=== PATIENT | male | born 1945 | race Two or more races ===

== ENCOUNTER 2018-12-23 17:45 | Inpatient (IN) | payer MEDICARE, OTHER ==
[~2018-12-23] VITALS: Ht 177.8 cm; Wt 64.4 kg
--- NOTE | 2018-12-23 17:45 | NUR ---
PT MADDIE FROM SNF FOR AMS; PT THROWING HIMSELF ON THE FLOOR, UN COOPERATIVE WITH CARE; PT AAOX1-2 FOLLOWS SIMPLE COMMANDS, RESP EVEN AND UNLABORED, NO SOB, NAD NOTED, VSS, PT ON MONITOR, PENDING ER PROVIDER PALM[place]
[2018-12-23] MEDS ORDERED: HALOPERIDOL LACTATE INJ 5 MG/ML VIAL ONE (18:47)
[2018-12-23 18:56] LABS: BASOPHILS % (AUTO) 0.3 % (0.0-2.0); HEMATOCRIT 38 % (39-51); HEMOGLOBIN 12.5 g/dL (13.5-17.5); LYMPHOCYTES # (AUTO) 3.1 /CMM (0.8-4.8); LYMPHOCYTES % (AUTO) 23.3 % (20.0-44.0); MEAN CORPUSCULAR HGB CONC 33 g/dl (31.0-36.0); MEAN CORPUSCULAR VOLUME 85 fL (80-96); MONOCYTES % (AUTO) 7.2 % (2.0-12.0); NEUTROPHILS # (AUTO) 9.2 /CMM (1.8-8.9); NEUTROPHILS % (AUTO) 69.2 % (43.0-81.0); PLATELET COUNT (AUTO) 455 /CMM (150-450); RED BLOOD CELL COUNT(AUTO) 4.42 MIL/uL (4.5-6.0); WHITE BLOOD COUNT (AUTO) 13.3 K/uL (4.3-11.0)
[2018-12-23] MEDS ORDERED: HALOPERIDOL LACTATE INJ 5 MG/ML VIAL IM ONE (19:00)
[2018-12-23 19:11] LABS: ALBUMIN 3.6 g/dL (3.4-5.0); ASPARTATE AMINOTRANSFERASE 18 U/L (15-37); BILIRUBIN,DIRECT 0.2 mg/dL (0.0-0.2); BILIRUBIN,TOTAL 0.7 mg/dL (0.2-1.0); CALCIUM, SERUM 9.3 mg/dL (8.5-10.1); CARBON DIOXIDE 21 mmol/L (21-32); CHLORIDE 108 mmol/L (98-107); CREATININE 1.4 mg/dL (0.6-1.3); GLUCOSE 97 mg/dL (74-106); POTASSIUM 4.6 mmol/L (3.5-5.1); SODIUM SERUM 144 mmol/L (136-145); UREA NITROGEN, BLOOD 12 mg/dL (7-18)
[2018-12-23 19:17] LABS: ACETAMINOPHEN 0 ug/ml (10-30); SALICYLATE 0.9 mg/dL (2.8-20.0)
[2018-12-23 19:28] LABS: ALCOHOL, BLOOD < 5 mg/dL (0-0)
[2018-12-23 19:41] LABS: ALANINE AMINOTRANSFERASE 14 U/L (12-78); ALKALINE PHOSPHATASE 62 U/L (46-116)
--- NOTE | 2018-12-23 21:00 | NUR ---
UNABLE TO GET URINE AT THIS TIME.
[2018-12-23] MEDS ORDERED: LIDOCAINE 2% JEL UROJET 10 ML MM ONE (21:10)
[2018-12-23] MEDS ORDERED: IV NS 0.9% 1,000 ML BAG IV ONE (21:30)
--- NOTE | 2018-12-23 22:57 | NUR ---
URINE COLLECTED AND SENT TO [facility]
--- NOTE | 2018-12-23 23:15 | NUR ---
RECEIVED REPORT FROM KELLY WONG FOR CONTINUITY OF CARE. PT COMFORTABLE IN BED AT THIS TIME. PT NOTED WITH PERIODS OF CONFUSION HX DEMENTIA. NO ACUTE DISTRESS NOTED AT THIS TIME. PT CONNECTED TO MONITOR.
[2018-12-23 23:20] LABS: APPEARANCE,URINE CLEAR (CLEAR); BILIRUBIN,URINE NEGATIVE (NEGATIVE); BLOOD, URINE 3+ Ery/uL (NEGATIVE); COLOR,URINE YELLOW (YELLOW); KETONES,URINE NEGATIVE (NEGATIVE); LEUKOCYTE ESTERASE ,URINE NEGATIVE (NEGATIVE); NITRITE, URINE NEGATIVE (NEGATIVE); PH,URINE 8.5 (5.0-8.0); PROTEIN,URINE 1+ mg/dl (NEGATIVE); UGLUCOSE NEGATIVE (NEGATIVE); UROBILINOGEN,URINE 0.2 EU/dL (0.2)
[2018-12-23 23:50] LABS: BACTERIA,URINE Few /HPF (None Seen); RBC,URINE TOO NUMEROUS TO COUN /HPF (0-2); SQUAMOUS EPITHELIAL CELL,UR Few /HPF (None Seen)
--- NOTE | 2018-12-24 00:03 | NUR ---
CALLED RN SUP FOR MS BED.
[2018-12-24] MEDS ORDERED: DONE23TA3 GT (00:32)
[2018-12-24] MEDS ORDERED: ASPI-605 GT (00:32)
[2018-12-24] MEDS ORDERED: FAMO20TA8 GT (00:32)
[2018-12-24] MEDS ORDERED: CLON0.1T GT (00:32)
[2018-12-24] MEDS ORDERED: ATOR40TA GT (00:32)
[2018-12-24] MEDS ORDERED: BACL10TA GT (00:32)
[2018-12-24] MEDS ORDERED: ENOX40DI SUBCUT (00:32)
[2018-12-24] MEDS ORDERED: FLUT1DIS3 INH (00:32)
[2018-12-24] MEDS ORDERED: VALB80CA GT (00:32)
[2018-12-24] MEDS ORDERED: PROT946L GT (00:33)
[2018-12-24] MEDS ORDERED: ASCO500C18 GT (00:33)
[2018-12-24] MEDS ORDERED: QUET50TA GT (00:33)
[2018-12-24] MEDS ORDERED: TAMS0.4C34 GT (00:33)
[2018-12-24] MEDS ORDERED: MULT1TAB73 GT (00:33)
[2018-12-24] MEDS ORDERED: ACET1TAB12 PO (00:33)
[2018-12-24] MEDS ORDERED: IPRA0.2S49 NEB (00:33)
[2018-12-24] MEDS ORDERED: CARB-93 GT (00:33)
[2018-12-24] MEDS ORDERED: METO50TA16 GT (00:33)
[2018-12-24] MEDS ORDERED: ACET325T53 BC (00:33)
[2018-12-24] MEDS ORDERED: ZINC454P2 MC (00:33)
[2018-12-24] MEDS ORDERED: LEVE500T9 GT (00:33)
--- NOTE | 2018-12-24 00:33 | NUR ---
PT ASSIGNED TO BED 306-2
--- NOTE | 2018-12-24 00:34 | NUR ---
PT ASSIGNED TO LA BED 309-2
--- NOTE | 2018-12-24 00:40 | NUR ---
REPORT GIVEN TO KELLY YEPEZ FOR MS BED 309-2
--- NOTE | 2018-12-24 01:12 | NUR ---
PT TRANSFERRED VIA [facility].
--- NOTE | 2018-12-24 01:20 | NUR ---
RN ADMITTING NOTES Pt ARRIVED TO THE FLOOR VIA [facility]. Pt IS AWAKE, A/OX2, IS ABLE TO STATE FULL NAME AND CURRENT YEAR AND STATE THAT HE LIVES IN A [place]ODIAL. BUT WHEN ASKED IF HE KNOWS WHERE HE CURRENTLY IS, HE SAYS HE DOES NOT KNOW. AND WHEN ASKED WHY HE IS HERE, HE DOES NOT ANSWER THE QUESTION. Pt IS VERY COMBATIVE AND UNCOOPERATIVE WITH STAFF AND WITH CARE. WILL ATTEMPT TO GRAB, BITE, & HIT STAFF WITH HIS ARMS AND LEGS WHEN STAFF COMES NEAR HIM WHEN TRYING TO CLEAN HIM OR CHANGE HIS BED SHEETS OR TAKE HIS VS SIGNS. Pt ONLY ANSWERS SIMPLE QUESTIONS. Pt IS A VERY POOR HISTORIAN AND CANNOT RECALL HIS PAST MEDICAL HISTORY. IV ACCESS ON R HAND #18G,SL & L HAND #20G,SL. NO S/S OF ACUTE DISTRESS OR SOB NOTED. SAFETY MEASURES IN PLACE. BED LOW, LOCKED, HOB ELEVATED, SIDE RAILS UP, & BED ALARM ON. WILL CONTINUE TO MONITOR Pt's CONDITION AND SAFETY THROUGHOUT THE NIGHT.
[2018-12-24 01:30] VITALS: BP 124/82
--- NOTE | 2018-12-24 02:30 | NUR ---
RN NOTES SPOKE WITH DR CULP ON THE PHONE. INFORMED HIM THAT Pt's MEDS HAVE BEEN RECONCILED AND IS READY FOR REVIEW. OBTAINED ORDERS FROM MD FOR BILATERAL SOFT RESTRAINTS FOR TONIGHT AND A 1:1 SITTER ORDER FOR THE MORNING SHIFT. MD ORDERED CONTINUOUS IVF: NS @55ML/HR. & ORDERED TO CONTINUE TUBE FEEDING FROM SNF. WILL CARRY OUT MD ORDERS.
--- NOTE | 2018-12-24 02:31 | NUR ---
RN NOTES MD ORDER TO CONTINUE SEROQUEL 50MG FROM SNF. AND TO GIVE FIRST DOSE NOW.
--- NOTE | 2018-12-24 02:40 | NUR ---
RN NOTES UNABLE TO DO FULL HEAD TO TOE SKIN ASSESSMENT. Pt IS VERY COMBATIVE AND UNCOOPERATIVE. ATTEMPTING TO BITE, KICK, & HIT STAFF WHEN NEAR Pt OR TRYING TO REPOSITION. WILL ATTEMPT TO TAKE PICTURES AT A LATER TIME WHEN Pt HAS TIME TO CALM DOWN.
[2018-12-24] MEDS ORDERED: GLUCERNA 1.5 1,000 ML BOTTLE GT PRN ×2 (03:30→12:26)
[2018-12-24] MEDS ORDERED: IV NS 0.9% 1,000 ML BAG IV PRN (03:30)
[2018-12-24] MEDS: QUETIAPINE FUMARATE 25 MG TABLET PO SCH ×3 (04:02→16:32)
[2018-12-24] MEDS: IV NS 0.9% 1,000 ML IV PRN ×2 (04:03→20:30)
[2018-12-24 04:16] LABS: URINE TOTAL PROTEIN 64.4 mg/dL (0-11.9)
[2018-12-24] MEDS ORDERED: ACETAMINOPHEN W/ CODEINE#3 1 EA TABLET PO PRN (06:30)
[2018-12-24] MEDS ORDERED: ZOLPIDEM TARTRATE 5 MG TABLET PO PRN (07:00)
[2018-12-24] MEDS ORDERED: MAG HYDROX/AL HYDROX/SIMETH 30 ML UDC PO PRN (07:00)
[2018-12-24] MEDS ORDERED: ONDANSETRON HCL/PF 4 MG/2 ML VIAL IVP PRN (07:00)
[2018-12-24] MEDS ORDERED: ACETAMINOPHEN 325 MG TABLET PO PRN (07:00)
[2018-12-24] MEDS ORDERED: MAGNESIUM HYDROXIDE 30 ML UDC PO PRN (07:00)
[2018-12-24] MEDS ORDERED: HYDROCODONE/APAP 5/325MG 1 EACH TABLET PO PRN (07:00)
[2018-12-24] MEDS ORDERED: Z GUARD REMEDY 2 OZ OINT TP PRN (07:00)
--- NOTE | 2018-12-24 07:50 | NUR ---
RN CLOSING NOTES NO SIGNIFICANT CHANGES IN Pt's CONDITION. Pt REMAINS STABLE PER BASELINE. NO S/S OF ACUTE DISTRESS OR SOB NOTED DURING THE NIGHT. RESPIRATIONS EVEN AND UNLABORED. ALL NEEDS MET AND ATTENDED TO. SAFETY MEASURES IN PLACE. ENDORSED TO DAYSHIFT RN FOR Pt's TELLY.
[2018-12-24 08:00] VITALS: BP_SYST 116; BP_SYST 144; BP_DIAS 63; BP_DIAS 77
--- NOTE | 2018-12-24 08:00 | NUR ---
MS RN AM NOTES Pt IS AWAKE, A/OX2, IS ABLE TO STATE FULL NAME AND CURRENT YEAR AND STATE THAT HE LIVES IN A CUSTODIAL. BUT WHEN ASKED IF HE KNOWS WHERE HE CURRENTLY IS, HE SAYS HE DOES NOT KNOW.PT IS CONFUSED.Pt IS VERY COMBATIVE AND UNCOOPERATIVE WITH STAFF AND WITH CARE. WILL ATTEMPT TO GRAB, BITE, & HIT STAFF WITH HIS ARMS AND LEGS WHEN STAFF COMES NEAR HIM WHEN TRYING TO CLEAN HIM OR CHANGE HIS BED SHEETS OR TAKE HIS VS SIGNS. PLACED ZIGGY SOFT WRIST RESTRAINTS AND REMOVED Q 2 HRS TO CHECK FOR CIRCULATION.WITH 1:1 SITTER AT BEDSIDE DUE TO BEING FALL RISK EVEN WITH ZIGGY SOFT WRIST RESTRAINTS,PT ATTEMPTS TO PUT HIS BLE OVER THE SIDERAILS INSPITE OF REPOSITIONING HIM FOR COMFORT WITH 2 PERSON ASSIST.Pt ONLY ANSWERS SIMPLE QUESTIONS. IV ACCESS ON R HAND #18G,SL & L HAND #20G,PIV WITH NS AT 55 ML/HR INFUSING WELL. NO S/S OF ACUTE DISTRESS OR SOB NOTED. SAFETY MEASURES IN PLACE. BED LOW, LOCKED, HOB ELEVATED, SIDE RAILS UP, & BED ALARM ON. WILL CONTINUE TO MONITOR Pt's CONDITION AND SAFETY.TURNED EVERY TWO HRS.WITH 1 1 SITTER AT BEDSIDE.
[2018-12-24] MEDS: IPRATROPIUM NEB FS 0.5 MG/2.5 ML AMPUL.NEB NEB SCH ×3 (09:00→19:51)
[2018-12-24] MEDS ORDERED: ACETAMINOPHEN 325 MG TABLET PO SCH (09:00)
[2018-12-24] MEDS: CARBIDOPA/LEVODOPA 25/100 MG 1 UDTAB GT SCH ×3 (09:08→16:25)
[2018-12-24] MEDS: MULTIVITAMINS,THERAGRAN 1 UDTAB TABLET GT SCH (09:09)
[2018-12-24] MEDS: BACLOFEN (10 MG) 10 MG TABLET GT SCH ×3 (09:09→16:25)
[2018-12-24] MEDS: ASPIRIN EC 81 MG TABLET.DR PO SCH (09:10)
[2018-12-24] MEDS: METOPROLOL TARTRATE 50 MG TABLET GT SCH ×2 (09:11→21:00)
[2018-12-24] MEDS: CLONIDINE HCL 0.1 MG TABLET GT SCH ×3 (09:11→17:00)
--- NOTE | 2018-12-24 10:39 | NUR ---
CALLED DR SAUNDERS FOR PSYCH EVAL AND HE STATED FOR DR MATA TO SEE THE PT FOR TODAY AND DR SAUNDERS WILL SEE THE PT TOMORROW.INFORMED DR MATA AND FAXED INFO TO [employer].
[2018-12-24] MEDS: ASCORBIC ACID 500 MG TABLET GT SCH (11:58)
[2018-12-24] MEDS: DONEPEZIL 5 MG TABLET GT SCH (11:58)
[2018-12-24] MEDS: LEVETIRACETAM SOL (5 ML) 100 MG/ML UDC GT SCH (11:58)
[2018-12-24] MEDS: QUETIAPINE FUMARATE 25 MG TABLET GT SCH ×2 (11:58→16:26)
[2018-12-24] MEDS: FAMOTIDINE (20 MG) 20 MG TABLET GT SCH ×2 (11:59→16:26)
[2018-12-24] MEDS: ENOXAPARIN SODIUM 40 MG/0.4 ML DISP.SYRIN SQ SCH (11:59)
[2018-12-24 12:00] VITALS: BP 101/59
[2018-12-24 16:00] VITALS: BP 95/53
--- NOTE | 2018-12-24 16:00 | NUR ---
PT'S ,ERICKA VERDIN CALLED AND WANTS TO INCREASE SEROQUEL TO 400 MG BID.EXPLAINED TO ERICKA THAT WE ARE NOT IN THE POSITION TO CHANGE THE PT'S MED DOSAGE AND THAT THE PT RECEIVES 50 MG BID IN THE FACILITY.EXPLAINED THAT THE PT WAS SEEN BY PSYCH MD,DR MATA FOR [facility] AND THAT WE NEED TO FOLLOW PSYCH MD'S ORDERS.
[2018-12-24] MEDS: ATORVASTATIN 40 MG TABLET GT SCH (17:32)
--- NOTE | 2018-12-24 18:30 | NUR ---
PT ATE 50%OF DINNER-AND WAS VERBALIZING OF BEING HUNGRY.TOLERATED MECH SOFT DIET WELL WITH ASPIRATION PRECAUTIONS.A FEEDER. WILL CONTINUE TO MONITOR. TURNED EVERY TWO HRS.
--- NOTE | 2018-12-24 19:00 | NUR ---
KELLY MS NOTES RECEIVED PATIENT IN BED SLEEPING BUT EASILY AROUSABLE, VERBALLY RESPONSIVE, RESPIRATIONS EVEN AND UNLABORED WITH EQUAL RISE AND FALL OF CHEST, DENIES ANY PAIN OR DISCOMFORT AT THIS TIME, HEAD OF BED ELEVATED FOR ASPIRATION PRECAUTIONS, GTUBE IN PLACE INTACT AND PATENT, FEEDING ORDERED IN PLACE, RESIDUALS LESS THAN 5CC, ON ACUTE MEDICAL BILATERAL SOFT WRIST RESTRAINTS FOR COMBATIVE BEHAVIOR, SKIN, CIRCULATION ASSESSED WNL, BOTH HEELS OFFLOADED WITH PILLOWS AND REPOSITIONING PROVIDED, SITTER AT BEDSIDE, ORIENTED TO STAFF AND CALL LIGHT, AND KEPT WITHIN REACH, SAFETY PRECAUTIONS IN PLACE, LOW BED AND LOCKED, IV SITE TO RIGHT HAND #18 INTACT AND PATENT, IV SITE TO LEFT HAND #20 INTACT AND PATENT, NO REDNESS, NO INFILTRATION TO SITES, IVF NS RUNNING ORDERED. ALL NEEDS ATTENDED AT THIS TIME, REMAINS COMFORTABLE WILL CONTINUE TO TRY TO COLLECT URINE AND SPUTUM ORDERED. Addendum: 12/25/18 at 0044 by ROHAN OATES RN KELLY MS OPENING NOTES
[2018-12-24 20:00] VITALS: BP 101/58
--- NOTE | 2018-12-24 21:06 | NUR ---
RN MS NOTES LOPRESSOR HELD DUE TO DECREASED B/P 101/58, HEART RATE 57
[2018-12-24] MEDS: TAMSULOSIN 0.4 MG CAP.SR.24H GT SCH (21:11)
[2018-12-25] MEDS: IPRATROPIUM NEB FS 0.5 MG/2.5 ML AMPUL.NEB NEB SCH ×4 (01:37→19:30)
[2018-12-25] MEDS ORDERED: GLUCERNA 1.5 1,000 ML BOTTLE GT PRN (06:30)
--- NOTE | 2018-12-25 06:34 | NUR ---
RN MS CLOSING NOTES PATIENT IN BED SLEEPING BUT EASILY AROUSABLE, VERBALLY RESPONSIVE, RESPIRATIONS EVEN AND UNLABORED WITH EQUAL RISE AND FALL OF CHEST, DENIES ANY PAIN OR DISCOMFORT AT THIS TIME, HEAD OF BED ELEVATED FOR ASPIRATION PRECAUTIONS, GTUBE IN PLACE INTACT AND PATENT, FEEDING ORDERED IN PLACE INCREASED RATE TO 50 ML/HR WITH GOAL OF 70ML/HR, RESIDUALS LESS THAN 5CC, SITTER AT BEDSIDE, SKIN, CIRCULATION ASSESSED WNL, INTACT RESTRAINTS RELEASED, BOTH HEELS OFFLOADED WITH PILLOWS AND REPOSITIONING PROVIDED, SACRAL SITE OFFLOADED, NOTED REDNESS MEPILEX APPLIED AWAITING WOUND CARE CONSULT AND OFFLOADED CALL LIGHT KEPT WITHIN REACH, SAFETY PRECAUTIONS IN PLACE, LOW BED AND LOCKED, IV SITE TO RIGHT HAND #18 INTACT AND PATENT, IV SITE TO LEFT HAND #20 INTACT AND PATENT, NO REDNESS, NO INFILTRATION TO SITES, IVF NS RUNNING ORDERED. ALL NEEDS ATTENDED AT THIS TIME, REMAINS COMFORTABLE ATTEMPTED TO COLLECT URINE AND SPUTUM ORDERED UNABLE TO PATIENT KICKING, YELLING " LEAVE ME ALONE, EXCUSE".DESPITE EXPLANATION ATTEMPTED TO COLLECT WITH NEW CLEAN URINAL WELL, PATIENT REFUSED. WILL CONTINUE TO MONITOR AND ENDORSE TO NEXT SHIFT.
[2018-12-25 06:43] LABS: BASOPHILS % (AUTO) 0.7 % (0.0-2.0); EOSINOPHILS % (AUTO) 6.9 % (0.0-6.0); HEMATOCRIT 32 % (39-51); HEMOGLOBIN 10.6 g/dL (13.5-17.5); LYMPHOCYTES % (AUTO) 42.1 % (20.0-44.0); MEAN CORPUSCULAR HGB CONC 33 g/dl (31.0-36.0); MEAN CORPUSCULAR VOLUME 84 fL (80-96); MONOCYTES # (AUTO) 0.4 /CMM (0.1-1.30); MONOCYTES % (AUTO) 8.7 % (2.0-12.0); NEUTROPHILS % (AUTO) 41.6 % (43.0-81.0); PLATELET COUNT (AUTO) 274 /CMM (150-450); WHITE BLOOD COUNT (AUTO) 4.7 K/uL (4.3-11.0)
[2018-12-25 07:01] LABS: ALANINE AMINOTRANSFERASE 10 U/L (12-78); ALBUMIN 2.4 g/dL (3.4-5.0); ALKALINE PHOSPHATASE 44 U/L (46-116); ASPARTATE AMINOTRANSFERASE 19 U/L (15-37); BILIRUBIN,TOTAL 0.3 mg/dL (0.2-1.0); CALCIUM, SERUM 8.1 mg/dL (8.5-10.1); CARBON DIOXIDE 26 mmol/L (21-32); CHLORIDE 109 mmol/L (98-107); CREATININE 0.8 mg/dL (0.6-1.3); GLUCOSE 94 mg/dL (74-106); MAGNESIUM 1.7 mg/dL (1.8-2.4); PHOSPHORUS 3.6 mg/dL (2.5-4.9); POTASSIUM 3.6 mmol/L (3.5-5.1); SODIUM SERUM 143 mmol/L (136-145); UREA NITROGEN, BLOOD 13 mg/dL (7-18)
[2018-12-25 07:03] LABS: CHOLESTEROL 102 mg/dL (<200); CREATINE KINASE, TOTAL 378 U/L (39-308); HDL CHOLESTEROL 35 mg/dL (40-60); LDL 60 mg/dL (0-99); THYROID STIMULATING HORMONE 0.562 uIU/mL (0.358-3.74); TRIGLYCERIDES 85 mg/dL (30-150)
--- NOTE | 2018-12-25 07:31 | NUR ---
MS/RN OPENING NOTE PATIENT IN BED IN STABLE CONDITION. A/O X 1 WITH EPISODES OF CONFUSION AND BEING COMBATIVE SOMETIMES. NO SIGNS OF ACUTE DISTRESS. NO COMPLAIN OF PAIN OR DISCOMFORT. ON G TUBE FEEDING GLUCERNA 1.2 AT 50MLS/HR WITH GOAL 70MLS/HR. TOLERATING WELL. HOB ELEVATED AT ALL TIMES FOR ASPIRATION PRECAUTION. ALL NEEDS ATTENDED TO. 1:1 SITTER AT BEDSIDE. CALL LIGHT WITHIN REACH. WILL CONTINUE TO MONITOR TO ENSURE SAFETY.
[2018-12-25 08:00] VITALS: BP 137/73
--- NOTE | 2018-12-25 08:22 | NUR ---
WOUND CARE CONSULT WOUND CARE RECEIVED CONSULT FOR MULTIPLE WOUNDS. WOUND CARE WILL DEFER CONSULT AND ALL TREATMENT PLANS TO PLASTIC SURGICAL TEAM WHO HAVE BEEN NOTIFIED OF THE CONSULT INCLUDING DPM DR MORRELL. PATIENT WITH DERIC AT 12, ALL PRESSURE ULCER PREVENTION MEASURES ARE NOTED TO BE IN PLACE AT THIS TIME. WILL SEE PRN.
[2018-12-25] MEDS: FLUTICASONE/VILANTEROL 1 EACH BLST.W.DEV IH SCH (08:43)
[2018-12-25] MEDS: BACLOFEN (10 MG) 10 MG TABLET GT SCH ×3 (08:44→16:38)
[2018-12-25] MEDS: ASCORBIC ACID 500 MG TABLET GT SCH (08:44)
[2018-12-25] MEDS: QUETIAPINE FUMARATE 25 MG TABLET GT SCH ×3 (08:44→16:39)
[2018-12-25] MEDS: METOPROLOL TARTRATE 50 MG TABLET GT SCH ×2 (08:44→21:00)
[2018-12-25] MEDS: MULTIVITAMINS,THERAGRAN 1 UDTAB TABLET GT SCH (08:44)
[2018-12-25] MEDS: ASPIRIN EC 81 MG TABLET.DR PO SCH (08:44)
[2018-12-25] MEDS: DONEPEZIL 5 MG TABLET GT SCH (08:44)
[2018-12-25] MEDS: FAMOTIDINE (20 MG) 20 MG TABLET GT SCH ×2 (08:44→16:38)
[2018-12-25] MEDS: LEVETIRACETAM SOL (5 ML) 100 MG/ML UDC GT SCH (08:44)
[2018-12-25] MEDS: CARBIDOPA/LEVODOPA 25/100 MG 1 UDTAB GT SCH ×3 (08:45→16:38)
[2018-12-25] MEDS: ENOXAPARIN SODIUM 40 MG/0.4 ML DISP.SYRIN SQ SCH (08:45)
[2018-12-25] MEDS: CLONIDINE HCL 0.1 MG TABLET GT SCH ×3 (08:45→16:40)
[2018-12-25] MEDS: Magnesium 1GM/D5W 100ML PREMIX 100 ML IV SCH ×2 (10:44→11:42)
--- NOTE | 2018-12-25 12:41 | NUR ---
M/S RN PATIENT REFUSED TO COLLECT URINE AND SPUTUM CULTURE PER MD ORDER. RISK AND BENEFITS DISCUSSED PATIENT AND OFFERED X3, STILL REFUSED. WILL CONTINUE TO OFFER.
[2018-12-25] MEDS: IV NS 0.9% 1,000 ML IV PRN (15:53)
[2018-12-25 16:00] VITALS: BP 96/57
--- NOTE | 2018-12-25 16:26 | NUR ---
MS/RN PATIENT SEEN AND EVALUATED BY ANDRE Greenberg FOR GI WITH ORDERS OF DIETARY CONSULT AND CALORIE COUNT X 3 DAYS; STARTING DINNER TODAY. KITCHEN NOTIFIED.
[2018-12-25] MEDS: ATORVASTATIN 40 MG TABLET GT SCH (16:39)
--- NOTE | 2018-12-25 18:20 | NUR ---
MS/RN CLOSING NOTE PATIENT IN BED IN STABLE CONDITION. A/O X 1-2 WITH EPISODES OF CONFUSION. NO SIGNS OF ACUTE DISTRESS. NO COMPLAIN OF PAIN OR DISCOMFORT. HOB ELEVATED FOR ASPIRATION PRECAUTION. PO MEAL INTAKE NOTED WELL AND TOLERATED WELL. 1:1 SITTER AT BEDSIDE. ALL NEEDS ATTENDED TO. CALL LIGHT WITHIN REACH. WILL ENDORSE TO NEXT SHIFT FOR CONTINUITY OF CARE.
--- NOTE | 2018-12-25 19:00 | NUR ---
RN MS OPENING NOTES RECEIVED PATIENT IN BED SLEEPING BUT EASILY AROUSABLE, VERBALLY RESPONSIVE, RESPIRATIONS EVEN AND UNLABORED WITH EQUAL RISE AND FALL OF CHEST, DENIES ANY PAIN OR DISCOMFORT AT THIS TIME, HEAD OF BED ELEVATED FOR ASPIRATION PRECAUTIONS, GTUBE IN PLACE INTACT AND PATENT, RESIDUALS LESS THAN 5CC, SITTER AT BEDSIDE, BOTH HEELS OFFLOADED WITH PILLOWS AND REPOSITIONING PROVIDED, ORIENTED TO STAFF AND CALL LIGHT, AND KEPT WITHIN REACH, SAFETY PRECAUTIONS IN PLACE, LOW BED AND LOCKED, IV SITE TO RIGHT HAND #18 INTACT AND PATENT, IV SITE TO LEFT HAND #20 INTACT AND PATENT, NO REDNESS, NO INFILTRATION TO SITES, IVF NS RUNNING ORDERED. ALL NEEDS ATTENDED AT THIS TIME, REMAINS COMFORTABLE WILL CONTINUE TO TRY TO COLLECT URINE AND SPUTUM ORDERED HOWEVER PATIENT AT THIS TIME OF EXPLANATION IS REFUSIVE STATING " NO" DESPITE EXPLAINING RISKS AND BENEFITS.
--- NOTE | 2018-12-25 19:30 | NUR ---
RN MS NOTES PATIENT REFUSED RESPIRATORY TREATMENT. X 3 DESPITE EXPLAINING RISK AND BENEFITS
[2018-12-25 20:00] VITALS: BP 111/56
--- NOTE | 2018-12-25 20:00 | NUR ---
RN MS NOTES PATIENT IS REFUSING VITAL SIGNS AT THIS TIME, EXPLAINED RISK AND BENEFITS. REFUSED X 3, WILL TRY AGAIN
[2018-12-25] MEDS: TAMSULOSIN 0.4 MG CAP.SR.24H GT SCH ×2 (21:03→22:00)
--- NOTE | 2018-12-25 21:49 | NUR ---
KELLY MS OPENING NOTES RECEIVED PATIENT IN BED SLEEPING BUT EASILY AROUSABLE, VERBALLY RESPONSIVE, RESPIRATIONS EVEN AND UNLABORED WITH EQUAL RISE AND FALL OF CHEST, DENIES ANY PAIN OR DISCOMFORT AT THIS TIME, HEAD OF BED ELEVATED FOR ASPIRATION PRECAUTIONS, GTUBE IN PLACE INTACT AND PATENT, RESIDUALS LESS THAN 5CC, SITTER AT BEDSIDE, BOTH HEELS OFFLOADED WITH PILLOWS AND REPOSITIONING PROVIDED, ORIENTED TO STAFF AND CALL LIGHT, AND KEPT WITHIN REACH, SAFETY PRECAUTIONS IN PLACE, LOW BED AND LOCKED, IV SITE TO RIGHT HAND #18 INTACT AND PATENT, IV SITE TO LEFT HAND #20 INTACT AND PATENT, NO REDNESS, NO INFILTRATION TO SITES, IVF NS RUNNING ORDERED. ALL NEEDS ATTENDED AT THIS TIME, REMAINS COMFORTABLE WILL CONTINUE TO TRY TO COLLECT URINE AND SPUTUM ORDERED HOWEVER PATIENT AT THIS TIME OF EXPLANATION IS REFUSIVE STATING " NO" DESPITE EXPLAINING RISKS AND BENEFITS. Addendum: 12/26/18 at 0158 by ROHAN OATES RN clarification opening notes 189912/25/18
--- NOTE | 2018-12-25 22:00 | NUR ---
RN MS NOTES PATIENT REFUSED MEDICATIONS LOPRESSOR AND FLOMAX X3 EXPLAINED RISK AND BENEFITS, OFFERED VIA GT OR BY MOUTH WITH PUDDING REFUSED, STATED "NO I DONT WANT IT". PATIENT ALSO REFUSING VITAL SIGNS , STRIKING AT STAFF DURING EXPLANATION WAS ABLE TO CONVINCE FOR BLOOD PRESSURE ONLY ,,18 UNABLE TO TAKE TEMPERATURE OR 02 SAT, HOWEVER PATIENT RESPIRATIONS ARE EVEN AND UNLABORED WITH EQUAL RISE AND FALL OF CHEST, NO SOB PRESENT.
[2018-12-26] MEDS: IPRATROPIUM NEB FS 0.5 MG/2.5 ML AMPUL.NEB NEB SCH ×4 (00:59→19:30)
--- NOTE | 2018-12-26 06:38 | NUR ---
RN MS CLOSING NOTES PATIENT IN BED AWAKE ALERT AND ORIENTED X 1-2 WITH PERIODS OF FORGETFULNESS AND CONFUSION VERBALLY RESPONSIVE, RESPIRATIONS EVEN AND UNLABORED WITH EQUAL RISE AND FALL OF CHEST, DENIES ANY PAIN OR DISCOMFORT AT THIS TIME, HEAD OF BED ELEVATED FOR ASPIRATION PRECAUTIONS, GTUBE IN PLACE INTACT AND PATENT, RESIDUALS LESS THAN 5CC, SITTER AT BEDSIDE, BOTH HEELS OFFLOADED WITH PILLOWS AND REPOSITIONING PROVIDED, REPOSITIONED AND OFFLOADED SACRAL BUTTOCKS AREA, REMAINS INTACT, Z-GUARD APPLIED AND MEPILEX FOR SKIN MANAGEMENT AND PREVENTION,CALL LIGHT KEPT WITHIN REACH, SAFETY PRECAUTIONS IN PLACE, LOW BED AND LOCKED, IV SITE TO RIGHT HAND #18 AND RIGHT UPPER ARM #22G INTACT AND PATENT, NO REDNESS, NO INFILTRATION TO SITES, IVF NS RUNNING ORDERED. ALL NEEDS ATTENDED AT THIS TIME, REMAINS COMFORTABLE AT THIS TIME, PATIENT IS STILL COMBATIVE AND REFUSIVE TO CARE. UNABLE TO COLLECT URINE AND SPUTUM ORDERED PATIENT AT THIS TIME DESPITE OF EXPLANATION IS REFUSIVE STATING " NO" EXPLAINED RISKS AND BENEFITS. ALL NEEDS ATTENDED SAFETY PRECAUTIONS IN PLACE, WILL CONTINUE TO MONITOR AND ENDORSE TO NEXT SHIFT.
[2018-12-26 07:14] LABS: CALCIUM, SERUM 7.8 mg/dL (8.5-10.1); CARBON DIOXIDE 24 mmol/L (21-32); CHLORIDE 113 mmol/L (98-107); CREATININE 0.8 mg/dL (0.6-1.3); GLUCOSE 96 mg/dL (74-106); MAGNESIUM 1.8 mg/dL (1.8-2.4); POTASSIUM 3.4 mmol/L (3.5-5.1); SODIUM SERUM 146 mmol/L (136-145); UREA NITROGEN, BLOOD 9 mg/dL (7-18)
--- NOTE | 2018-12-26 07:36 | NUR ---
MS/RN OPENING NOTES RECEIVED PATIENT ON BED WITH HOB ELEVATED SLEEPING BUT EASILY AROUSABLE; A/O X2 WITH EPISODE OF CONFUSION. RESPIRATION EVEN AND NON LABORED WITH NO ACUTE RESPIRATORY DISTRESS. DENIES PAIN AND DISCOMFORT. IV ON RIGHT UPPER ARM WITH NO S/SX OF INFILTRATION. CONTINUE TO BE ON ASPIRATION PRECAUTION; SITTER ON BEDSIDE DUE TO COMBATIVENESS BEHAVIOR AND WANTED TO GET OUT FROM THE BED. NO BM X 2 DAYS DUE TO NON COMPLIANCE WITH ADMINISTRATION OF MOM PER GRAPPLE CREW LEADER, WILL CONTINUE TO OFFER. PLACED CALL LIGHT WITHIN REACH TO ENSURE PATIENT'S SAFETY AT ALL TIMES. WILL CONTINUE TO EVALUATE CARE.
[2018-12-26] MEDS: BACLOFEN (10 MG) 10 MG TABLET GT SCH ×4 (09:00→18:02)
[2018-12-26] MEDS: CARBIDOPA/LEVODOPA 25/100 MG 1 UDTAB GT SCH ×4 (09:00→18:02)
[2018-12-26] MEDS: DONEPEZIL 5 MG TABLET GT SCH (09:00)
[2018-12-26] MEDS: CLONIDINE HCL 0.1 MG TABLET GT SCH ×3 (09:00→17:00)
[2018-12-26] MEDS: FLUTICASONE/VILANTEROL 1 EACH BLST.W.DEV IH SCH (09:00)
[2018-12-26] MEDS: LEVETIRACETAM SOL (5 ML) 100 MG/ML UDC GT SCH (09:00)
[2018-12-26] MEDS: ENOXAPARIN SODIUM 40 MG/0.4 ML DISP.SYRIN SQ SCH (09:00)
[2018-12-26] MEDS: QUETIAPINE FUMARATE 25 MG TABLET GT SCH ×3 (09:00→13:07)
[2018-12-26] MEDS: ASCORBIC ACID 500 MG TABLET GT SCH (09:00)
[2018-12-26] MEDS: FAMOTIDINE (20 MG) 20 MG TABLET GT SCH ×2 (09:00→18:02)
[2018-12-26] MEDS: ASPIRIN EC 81 MG TABLET.DR PO SCH (09:00)
[2018-12-26] MEDS: METOPROLOL TARTRATE 50 MG TABLET GT SCH ×2 (09:00→21:46)
[2018-12-26] MEDS: MULTIVITAMINS,THERAGRAN 1 UDTAB TABLET GT SCH (09:00)
[2018-12-26] MEDS ORDERED: POTASSIUM CHLORIDE 20 MEQ POWDER PACKET GT ONE (10:00)
--- NOTE | 2018-12-26 10:04 | NUR ---
MS/RN: PATIENT REFUSED TO TAKE AM MEDICATION ORDERED. RISK AND BENEFITS DISCUSSED AND OFFERED MEDICATION X 3, STATED HE WANTED TO TALK TO THE SISTER. RN CALLED SISTER AND UPON GIVING THE PHONE TO PATIENT, HE REFUSED TO TALK TO SISTER AND CONTINUE TO REFUSED MEDICATION ORDERED. PAGED DR. NELSON FOR PSYCH EVALUATION FOR FOLLOW UP. WAITING FOR CALL BACK.
--- NOTE | 2018-12-26 11:04 | NUR ---
M/S RN PATIENT REFUSED POTASSIUM ORDERED, RISK AND BENEFITS DISCUSSED, OFFERED X 3 AND STILL REFUSED. WILL CONTINUE TO MONITOR; PLACE CALL LIGHT WITHIN REACH AND SITTER CONTINUE ON BEDSIDE FOR SAFETY.
[2018-12-26] MEDS: LORAZEPAM INJ 2 MG/ML VIAL IV PRN ×2 (12:44→20:21)
[2018-12-26 13:11] LABS: PTH, INTACT 49 pg/mL (15-65)
--- NOTE | 2018-12-26 14:05 | NUR ---
MS/RN PATIENT REFUSED AFTERNOON MEDICATION ORDERED, OFFERED X3 WITH RISK AND BENEFITS DISCUSSED AND STILL REFUSED. SITTER ON BEDSIDE WITH CALL LIGHT WITHIN REACH FOR SAFETY. WILL CONTINUE TO MONITOR.
[2018-12-26] MEDS: IV NS 0.9% 1,000 ML IV PRN (16:11)
--- NOTE | 2018-12-26 16:32 | NUR ---
MS/RN SPOKE WITH DR DARNELL ROUSE AND RELAYED PATIENT'S CXR RESULTS WITH ORDERS TO OKAY TO DISCHARGE TO [facility].
[2018-12-26] MEDS: ATORVASTATIN 40 MG TABLET GT SCH (18:02)
[2018-12-26] MEDS: QUETIAPINE FUMARATE 100 MG TABLET GT SCH (18:02)
--- NOTE | 2018-12-26 18:24 | NUR ---
M/S RN PATIENT REFUSED CLONIDINE ORDERED, REFUSED TO TAKE VITAL SIGNS. RISK AND BENEFITS DISCUSSED; OFFERED X3 AND STILL REFUSED. WILL CONTINUE TO EVALUATE. WAITING FOR PSYCH EVAL AT THIS TIME.
--- NOTE | 2018-12-26 18:42 | NUR ---
MS/RN CLOSING NOTES PATIENT A/O X 1-2 AND ABLE TO MAKE NEEDS KNOWN. PATIENT WITH PRESENCE OF AGGRESSIVE BEHAVIOR WITH COMBATIVENESS; NON COMPLIANCE WITH CARE ESPECIALLY MEDICATION AND TREATMENT ADMINISTRATION EVEN IF RISK AND BENEFITS DISCUSSED. RESPIRATION EVEN AND NON LABORED WITH NO ACUTE RESPIRATORY DISTRESS; SHORTNESS OF BREATH IN MINIMAL EXERTION; OXYGEN OFFERED VIA NASAL CANNULA AND REFUSED. EDUCATED BREATHING PATTERN WITH HEAD OF BED ELEVATED FOR LUNG EXPANSION. DENIES PAIN AND DISCOMFORT. ABDOMEN SOFT AND NON DISTENDED WITH ACTIVE BOWEL SOUNDS; PRESENCE OF G-TUBE WITH NO SIGNS AND SYMPTOMS OF INFECTION AT SITE. IV ON RIGHT UPPER ARM #22 WITH IV STOPPED CAUSE PATIENT PULLED OUT THE TUBE FROM IV PUMP; REFUSED TO PUT ANOTHER IV HYDRATION EITHER TOUCHING THE IV SITES. CONTINUE ON ASPIRATION PRECAUTION WITH MECHANICAL SOFT NECTAR THICK LIQUID DIET. SKIN WARM TO TOUCH WITH BOTH HEELS ON OFF LOAD, SACRAL REDNESS GIVEN Z-GUARD FOR SKIN PROTECTANT. ALL NURSING CARE PROVIDED. SITTER ON BEDSIDE AT ALL TIMES; PLACED CALL LIGHT WITHIN REACH TO ENSURE SAFETY. ENDORSED OT NEXT SHIFT PATIENT'S CONDITION.
--- NOTE | 2018-12-26 19:30 | NUR ---
MS RN INITIAL NOTES Patient in bed, appears angry. IVF not infusing, per report patient refused medication and treatment. Patient is also irritable and with agitation behavior, IV cath in left hand appears dislodged. On RA, denies shortness of breath. Maintained safety, sitter at the bedside. Will cont to monitor.
[2018-12-26 20:29] VITALS: BP 110/72
[2018-12-26] MEDS: TAMSULOSIN 0.4 MG CAP.SR.24H GT SCH (21:46)
[2018-12-26] MEDS: QUETIAPINE FUMARATE 25 MG TABLET GT PRN (21:51)
[2018-12-27] MEDS: IPRATROPIUM NEB FS 0.5 MG/2.5 ML AMPUL.NEB NEB SCH ×4 (01:05→18:49)
[2018-12-27] MEDS: LORAZEPAM INJ 2 MG/ML VIAL IV PRN ×2 (05:46→17:28)
--- NOTE | 2018-12-27 06:15 | NUR ---
MS RN CLOSING NOTES Patient in bed, A/O x 1 to self only, with confusion and agitation at times. Non compliant with medication and treatment, pulling off IV tubings/IV peripheral lines, combative and aggressive during care, PRN ativan given x2 this shift, Psyche following. Stool for OB test, no bowel movement this shift. Refused nebulizer treatment per RT. Stable oxygen saturation on RA, no cough. Gtube intact and clamped. Maintained safety, sitter at the bedside. Will endorse to oncoming RN.
[2018-12-27 06:54] LABS: BASOPHILS % (AUTO) 0.7 % (0.0-2.0); EOSINOPHILS % (AUTO) 4.1 % (0.0-6.0); HEMATOCRIT 34 % (39-51); HEMOGLOBIN 11.4 g/dL (13.5-17.5); LYMPHOCYTES # (AUTO) 4.2 /CMM (0.8-4.8); LYMPHOCYTES % (AUTO) 57.1 % (20.0-44.0); MEAN CORPUSCULAR HGB CONC 34 g/dl (31.0-36.0); MEAN CORPUSCULAR VOLUME 85 fL (80-96); MONOCYTES # (AUTO) 0.7 /CMM (0.1-1.30); MONOCYTES % (AUTO) 8.9 % (2.0-12.0); NEUTROPHILS # (AUTO) 2.1 /CMM (1.8-8.9); NEUTROPHILS % (AUTO) 29.2 % (43.0-81.0); PLATELET COUNT (AUTO) 267 /CMM (150-450); RED BLOOD CELL COUNT(AUTO) 4.02 MIL/uL (4.5-6.0); WHITE BLOOD COUNT (AUTO) 7.3 K/uL (4.3-11.0)
[2018-12-27 07:04] LABS: CALCIUM, SERUM 8.2 mg/dL (8.5-10.1); CARBON DIOXIDE 22 mmol/L (21-32); CHLORIDE 111 mmol/L (98-107); CREATININE 0.8 mg/dL (0.6-1.3); GLUCOSE 85 mg/dL (74-106); MAGNESIUM 1.7 mg/dL (1.8-2.4); POTASSIUM 3.2 mmol/L (3.5-5.1); SODIUM SERUM 146 mmol/L (136-145); UREA NITROGEN, BLOOD 7 mg/dL (7-18)
--- NOTE | 2018-12-27 07:20 | NUR ---
RN OPENING NOTES PT RESTING IN BED. 1:1 SITTER AT BEDSIDE. PT ALERT TO SELF AND IS CONFUSED. PER ROLLER MAN NURSE PT HAS BEEN REFUSING MEDICATIONS. NO APPARENT S/S OF PAIN, DISTRESS OR SOB AT THIS TIME. PT HAS A LEFT UPPER ARM #22 IV INTACT AND RUNNING NS @55ML/HR. SAFETY PRECAUTIONS IN PLACE, BED IN LOWEST LOCKED POSITION, X3 SIDE RAILS UP AND CALL LIGHT WITHIN REACH. WILL CONTINUE TO MONITOR.
[2018-12-27 08:00] VITALS: BP 151/75
[2018-12-27] MEDS: MULTIVITAMINS,THERAGRAN 1 UDTAB TABLET GT SCH (08:22)
[2018-12-27] MEDS: CARBIDOPA/LEVODOPA 25/100 MG 1 UDTAB GT SCH ×3 (08:22→16:04)
[2018-12-27] MEDS: QUETIAPINE FUMARATE 100 MG TABLET GT SCH ×2 (08:22→16:04)
[2018-12-27] MEDS: CLONIDINE HCL 0.1 MG TABLET GT SCH ×3 (08:22→16:04)
[2018-12-27] MEDS: ASPIRIN EC 81 MG TABLET.DR PO SCH (08:23)
[2018-12-27] MEDS: FAMOTIDINE (20 MG) 20 MG TABLET GT SCH ×2 (08:23→16:04)
[2018-12-27] MEDS: DONEPEZIL 5 MG TABLET GT SCH (08:23)
[2018-12-27] MEDS: BACLOFEN (10 MG) 10 MG TABLET GT SCH ×3 (08:23→16:04)
[2018-12-27] MEDS: METOPROLOL TARTRATE 50 MG TABLET GT SCH ×2 (08:23→21:37)
[2018-12-27] MEDS: ASCORBIC ACID 500 MG TABLET GT SCH (08:23)
[2018-12-27] MEDS: ENOXAPARIN SODIUM 40 MG/0.4 ML DISP.SYRIN SQ SCH (08:26)
[2018-12-27] MEDS: LEVETIRACETAM SOL (5 ML) 100 MG/ML UDC GT SCH (08:26)
[2018-12-27] MEDS: FLUTICASONE/VILANTEROL 1 EACH BLST.W.DEV IH SCH (08:27)
[2018-12-27] MEDS ORDERED: POTASSIUM CHLORIDE 20 MEQ TAB.PRT.SR PO SCH (09:30)
[2018-12-27] MEDS: POTASSIUM CHLORIDE 20 MEQ POWDER PACKET GT SCH ×2 (10:03→10:32)
[2018-12-27] MEDS: Magnesium 1GM/D5W 100ML PREMIX 100 ML IV SCH ×2 (11:19→12:18)
[2018-12-27] MEDS: QUETIAPINE FUMARATE 25 MG TABLET GT SCH (12:19)
[2018-12-27 16:00] VITALS: BP 130/71
[2018-12-27] MEDS: ATORVASTATIN 40 MG TABLET GT SCH (17:14)
--- NOTE | 2018-12-27 17:15 | NUR ---
RN NOTES PT GIVEN PRN MILK OF MAGNESIA, AWAITING STOOL SAMPLE FOR OB STOOL. WILL CONTINUE TO MONITOR.
--- NOTE | 2018-12-27 19:01 | NUR ---
RN CLOSING NOTES PT RESTING IN BED. 1:1 SITTER AT BEDSIDE. PT ALERT TO SELF AND IS CONFUSED. NO APPARENT S/S OF PAIN, DISTRESS OR SOB AT THIS TIME. PT BECAME AGITATED AND PRN ATIVAN WAS GIVEN. AGITATION SUBSIDED. PT HAS A LEFT UPPER ARM #22 IV INTACT AND RUNNING NS @55ML/HR. SAFETY PRECAUTIONS IN PLACE, BED IN LOWEST LOCKED POSITION, X3 SIDE RAILS UP AND CALL LIGHT WITHIN REACH. WILL ENDORSE TO ESTIMATOR BINDING NURSE FOR CONTINUITY OF CARE.
[2018-12-27] MEDS: QUETIAPINE FUMARATE 25 MG TABLET GT PRN (19:41)
--- NOTE | 2018-12-27 19:41 | NUR ---
RN NOTES PT GIVEN PRN SEROQUEL FOR AGITATION. WILL ENDORSE TO NIGHT NURSE TO CONTINUE TO MONITOR.
--- NOTE | 2018-12-27 19:59 | NUR ---
MS/RN OPENING NOTES RECEIVED PATIENT IN BED, ON ESCALATING BEHAVIOR EARLY SHIFT, GETTING OUT OF BED, REQUIRE SITTER, LOUD VOICE AND SCREAMS, CURRENTLY ABLE TO CALM AFTER SOME MEDICATION GIVEN BY AM RN TO CALM HIM DOWN, REFUSES BREATHING TX, ON ROOM AIR, REQUIRE EXTENSIVE ASSISTANCE, SKIN COOL TO TOUCH, PROVIDED WARM BLANKET, OFFERED AND FED SOME JELLO. PATIENT CONFUSED, INCONTINENT, WITH SACRAL EXCORIATION , ON PEG TUBE FOR MEDS, BUT THICKENED FLUIDS, ON CALORIE COUNT, JUMANA GAUGE 22 WILL MONITOR AND CHANGES FOR SAFETY. BED LOCKED.
[2018-12-27 20:00] VITALS: BP 133/82
[2018-12-27] MEDS: TAMSULOSIN 0.4 MG CAP.SR.24H GT SCH (21:37)
[2018-12-27] MEDS: IV NS 0.9% 1,000 ML IV PRN (21:38)
--- NOTE | 2018-12-28 00:24 | NUR ---
UNABLE TO COLLECT SPUTUM. PATIENT NOT COOPERATIVE WITH AGGRESSIVE BEHAVIOR, COMBATIVE, UNABLE TO TAKE PHOTO OF WOUND IN SACRAL AREA AND MULTIPLE DISCOLORATIONS PATIETN VERBALIZED WANTED TO SLEEP.
[2018-12-28] MEDS: IPRATROPIUM NEB FS 0.5 MG/2.5 ML AMPUL.NEB NEB SCH ×4 (01:30→19:30)
--- NOTE | 2018-12-28 02:07 | NUR ---
MS/RN NOTES PATIENT ABLE TO SLEEP INTERMITENTLY. WHEN AWAKE, PATIENT SCREAMS AND WITH IMPULSIVE BEHAVIOR , VERBALLY COMBATIVE, AND WITH STRONG ARMS. REQUIRE ASSISTANCE. REFUSE TO HAVE PHOTOS OF WOUND, NOT COOPERATIVE. WILL MONITOR AND WILL PROVIDE NEEDED CARE/ INTERVENTION.
--- NOTE | 2018-12-28 06:41 | NUR ---
MS/RN OPENING NOTES PATIENT WITH AMS, REQUIRE SITTER FOR SAFETY, SOME BEHAVIOR CHANGES AND IMPULSIVE, MONITORED, KEPT COMFORTABLE, RESPIRATIONS EVEN AND UNLABORED, REPOSITIONED FOR COMFORT, KEPT CLEAN AND DRY. BED LOCKED, PROVIDED AND OFFERED SNACKS. ON IV HYDRATION, CHECKED FOR PATENCY. WILL ENDORSE TO AM RN FOR TELLY.
[2018-12-28 06:53] LABS: BASOPHILS # (AUTO) 0.1 /CMM (0.0-0.2); BASOPHILS % (AUTO) 1.5 % (0.0-2.0); HEMATOCRIT 31 % (39-51); HEMOGLOBIN 10.5 g/dL (13.5-17.5); LYMPHOCYTES # (AUTO) 1.5 /CMM (0.8-4.8); LYMPHOCYTES % (AUTO) 34.3 % (20.0-44.0); MEAN CORPUSCULAR HGB CONC 34 g/dl (31.0-36.0); MEAN CORPUSCULAR VOLUME 83 fL (80-96); MONOCYTES # (AUTO) 0.3 /CMM (0.1-1.30); MONOCYTES % (AUTO) 6.8 % (2.0-12.0); NEUTROPHILS # (AUTO) 2.3 /CMM (1.8-8.9); NEUTROPHILS % (AUTO) 50.4 % (43.0-81.0); PLATELET COUNT (AUTO) 297 /CMM (150-450); RED BLOOD CELL COUNT(AUTO) 3.73 MIL/uL (4.5-6.0); WHITE BLOOD COUNT (AUTO) 4.5 K/uL (4.3-11.0)
[2018-12-28 07:11] LABS: CALCIUM, SERUM 7.9 mg/dL (8.5-10.1); CARBON DIOXIDE 25 mmol/L (21-32); CHLORIDE 111 mmol/L (98-107); CREATININE 0.7 mg/dL (0.6-1.3); GLUCOSE 86 mg/dL (74-106); PHOSPHORUS 2.6 mg/dL (2.5-4.9); POTASSIUM 3.2 mmol/L (3.5-5.1); SODIUM SERUM 145 mmol/L (136-145); UREA NITROGEN, BLOOD 7 mg/dL (7-18)
[2018-12-28 08:00] VITALS: BP 151/67
[2018-12-28 08:09] LABS: *SPE A/G RATIO 0.8 (0.7-1.7); *SPE ALBUMIN 2.5 g/dL (2.9-4.4); *SPE ALPHA-1-GLOBULIN 0.3 g/dL (0.0-0.4); *SPE ALPHA-2-GLOBULIN 0.7 g/dL (0.4-1.0); *SPE BETA GLOBULIN 0.7 g/dL (0.7-1.3); *SPE M-SPIKE Not Observed g/dL (Not Observed); *SPEGAMMA GLOBULIN 1.2 g/dL (0.4-1.8)
[2018-12-28] MEDS: CARBIDOPA/LEVODOPA 25/100 MG 1 UDTAB GT SCH ×3 (08:55→17:00)
[2018-12-28] MEDS: FAMOTIDINE (20 MG) 20 MG TABLET GT SCH ×2 (08:55→17:00)
[2018-12-28] MEDS: CLONIDINE HCL 0.1 MG TABLET GT SCH ×3 (08:55→17:00)
[2018-12-28] MEDS: BACLOFEN (10 MG) 10 MG TABLET GT SCH ×3 (08:56→17:00)
[2018-12-28] MEDS: ASCORBIC ACID 500 MG TABLET GT SCH (08:56)
[2018-12-28] MEDS: METOPROLOL TARTRATE 50 MG TABLET GT SCH ×2 (08:56→21:34)
[2018-12-28] MEDS: LEVETIRACETAM SOL (5 ML) 100 MG/ML UDC GT SCH (08:56)
[2018-12-28] MEDS: DONEPEZIL 5 MG TABLET GT SCH (08:56)
[2018-12-28] MEDS: QUETIAPINE FUMARATE 100 MG TABLET GT SCH ×2 (08:56→17:00)
[2018-12-28] MEDS: ASPIRIN EC 81 MG TABLET.DR PO SCH (08:56)
[2018-12-28] MEDS: MULTIVITAMINS,THERAGRAN 1 UDTAB TABLET GT SCH (08:56)
[2018-12-28] MEDS: FLUTICASONE/VILANTEROL 1 EACH BLST.W.DEV IH SCH (09:00)
[2018-12-28] MEDS: ENOXAPARIN SODIUM 40 MG/0.4 ML DISP.SYRIN SQ SCH (09:09)
[2018-12-28] MEDS: POTASSIUM CHLORIDE 20 MEQ POWDER PACKET GT SCH ×2 (12:15→12:16)
[2018-12-28] MEDS: LORAZEPAM INJ 2 MG/ML VIAL IV PRN (12:53)
--- NOTE | 2018-12-28 12:57 | NUR ---
PATIENT BECAME AGITATED AND VERY AGGRESSIVE. SITTER AT THE BED SITE FOR SAFETY. REFUSED LUNCH, WILL OFFER LUNCH LATER
[2018-12-28] MEDS: ENSURE ENLIVE 237 ML LIQUID (VANILLA) PO SCH ×2 (13:11→17:41)
[2018-12-28] MEDS: QUETIAPINE FUMARATE 25 MG TABLET GT SCH (13:11)
--- NOTE | 2018-12-28 16:00 | NUR ---
PATIENT REFUSED TO TAKE VS. PATIENT DOESN'T WANT TO BE TOUCHED
[2018-12-28] MEDS: PROSOURCE / PROSTAT (PYXIS) 30 ML UDC GT SCH (17:00)
[2018-12-28] MEDS: ATORVASTATIN 40 MG TABLET GT SCH (17:40)
--- NOTE | 2018-12-28 19:03 | NUR ---
PT A/O X1 , SITTER AT BEDSIDE. ABDOMINAL BINDER IN PLACE TO PROTECT G-TUBE. ALL NEEDS ATTENDED , PT TURNED AND REPOSITIONED Q2HR. PATIENT ATE 100% BREAKFAST AND DINNER, REFUSED LUNCH. IV LINE INTACT AND PATENT. WILL ENDORESE TO NEXT SHIFT FOR TELLY.
--- NOTE | 2018-12-28 19:20 | NUR ---
MS/RN NOTES RECEIVED PT. LYING IN BED RESTING. PT. IS EASILY AROUSABLE TO NAME. PT. IS AWAKE, ALERT AND ORIENTED X1. BREATHING EVEN AND UNLABORED ON ROOM AIR. NO SOB, RESPIRATORY DISTRESS OR COMPLAINTS OF PAIN NOTED AT THIS TIME. PT. WITH PERIPHERAL IV PRESENT, PATENT AND INTACT ADMINISTERING TO PT. NS @ 55ML/HR. PT. WITH G-TUBE PRESENT, PATENT AND INTACT WITH ABDOMINAL BINDER IN PLACE. PT. WITH 1:1 SITTER PRESENT AT BEDSIDE. BED LOCKED AND IN LOWEST POSITION, SIDE RAILS UP X2, BED ALARM ON, CALL LIGHT WITHIN REACH, WILL CONTINUE TO MONITOR FOR CHANGES.
[2018-12-28 20:00] VITALS: BP 156/94
[2018-12-28] MEDS: TAMSULOSIN 0.4 MG CAP.SR.24H GT SCH (21:34)
[2018-12-29] MEDS: IPRATROPIUM NEB FS 0.5 MG/2.5 ML AMPUL.NEB NEB SCH ×2 (01:30→07:35)
--- NOTE | 2018-12-29 06:42 | NUR ---
MS/RN NOTES PT. IS LYING IN BED RESTING. BREATHING EVEN AND UNLABORED ON ROOM AIR. NO SOB, RESPIRATORY DISTRESS OR COMPLAINTS OF PAIN NOTED AT THIS TIME. PT. WITH LEFT UPPER ARM PERIPHERAL IV PRESENT, PATENT AND INTACT ADMINISTERING TO PT. NS @ 55ML/HR. PT. WITH G-TUBE PRESENT, PATENT AND INTACT WITH ABDOMINAL BINDER IN PLACE. PT. WITH 1:1 SITTER PRESENT AT BEDSIDE. ALL PT. NEEDS MET. BED LOCKED AND IN LOWEST POSITION, SIDE RAILS UP X2, BED ALARM ON, CALL LIGHT WITHIN REACH, WILL ENDORSE TO DAYSHIFT NURSE FOR CONTINUITY OF CARE.
--- NOTE | 2018-12-29 07:35 | NUR ---
MS RN OPENING NOTES RECEIVED PATIENT IN STABLE CONDITION. IN NO APPARENT DISTRESS. BEDSIDE RAILS ARE UPX2. BED IS LOCKED AND LOWERED. CALL LIGHT IS WITHIN REACH. IV LINE IS INTACT AND PATENT. WILL CONTINUE TO MONITOR PATIENT.
[2018-12-29] MEDS: FLUTICASONE/VILANTEROL 1 EACH BLST.W.DEV IH SCH (09:00)
[2018-12-29] MEDS: METOPROLOL TARTRATE 50 MG TABLET GT SCH (09:50)
[2018-12-29] MEDS: LEVETIRACETAM SOL (5 ML) 100 MG/ML UDC GT SCH (09:50)
[2018-12-29 09:51] VITALS: BP 136/75
[2018-12-29] MEDS: ASPIRIN EC 81 MG TABLET.DR PO SCH (09:51)
[2018-12-29] MEDS: ASCORBIC ACID 500 MG TABLET GT SCH (09:51)
[2018-12-29] MEDS: CLONIDINE HCL 0.1 MG TABLET GT SCH (09:51)
[2018-12-29] MEDS: BACLOFEN (10 MG) 10 MG TABLET GT SCH (09:51)
[2018-12-29] MEDS: CARBIDOPA/LEVODOPA 25/100 MG 1 UDTAB GT SCH (09:51)
[2018-12-29] MEDS: QUETIAPINE FUMARATE 100 MG TABLET GT SCH (09:52)
[2018-12-29] MEDS: FAMOTIDINE (20 MG) 20 MG TABLET GT SCH (09:52)
[2018-12-29] MEDS: DONEPEZIL 5 MG TABLET GT SCH (09:52)
[2018-12-29] MEDS: MULTIVITAMINS,THERAGRAN 1 UDTAB TABLET GT SCH (09:52)
[2018-12-29] MEDS: PROSOURCE / PROSTAT (PYXIS) 30 ML UDC GT SCH (09:53)
[2018-12-29] MEDS: ENOXAPARIN SODIUM 40 MG/0.4 ML DISP.SYRIN SQ SCH (09:55)
[2018-12-29] MEDS: ENSURE ENLIVE 237 ML LIQUID (VANILLA) PO SCH (11:43)
--- NOTE | 2018-12-29 11:59 | NUR ---
PATIENT REFUSES DISCHARGE SKIN ASSESSMENT AND PICTURES. PATIENT IS NON COOPERATIVE AND IS VIOLENT. ATTEMPTING TO BITE STAFF AND UNCOOPERATIVE WITH CARE.
--- NOTE | 2018-12-29 13:19 | NUR ---
MS SHIRT CREASER NOTES PATIENT DISCHARGED IN STABLE CONDITION. IN NO APPARENT DISTRESS. EXITCARE WAS SIGNED AND PROVIDED TO THE PATIENT. BELONGINGS WERE CHECKED AND PROVIDED TO THE PATIENT. ALL NEEDS WERE MET. PRESCRIPTIONS PROVIDED TO EMT. REPORT GIVEN TO RADHA MENDOZA AT THE [facility] [phone]. PATIENT WAS ESCORTED OUT OF THE FACILITY VIA GURNEY BY EMT. PATIENT REFUSED DISCHARGE SKIN ASSESMENT AND PICTURES. IV LINE AND ID BAND WERE REMOVED.
== END 2018-12-29 13:20 | DRG 682 ==
LOC: ER 17:45 → MED 12-24 00:36
PROVIDERS: ADMIT Internal Medicine; ATTEND Internal Medicine Nephrology
DX: N17.0 Acute kidney failure with tubular necrosis (principal); G92 Toxic encephalopathy; E44.0 Moderate protein-calorie malnutrition; F05 Delirium due to known physiological condition; F39 Unspecified mood [affective] disorder; G20 Parkinson's disease; F02.80 Dementia in other diseases classified elsewhere, unspecified severity, without behavioral disturbance, psychotic disturbance, mood disturbance, and anxiety; Z93.1 Gastrostomy status; R13.10 Dysphagia, unspecified; G40.909 Epilepsy, unspecified, not intractable, without status epilepticus; E78.5 Hyperlipidemia, unspecified; F32.9 Major depressive disorder, single episode, unspecified; Z79.82 Long term (current) use of aspirin; Z79.899 Other long term (current) drug therapy; L89.621 Pressure ulcer of left heel, stage 1; L89.611 Pressure ulcer of right heel, stage 1; D63.8 Anemia in other chronic diseases classified elsewhere; F01.50 Vascular dementia, unspecified severity, without behavioral disturbance, psychotic disturbance, mood disturbance, and anxiety; F43.9 Reaction to severe stress, unspecified; I10 Essential (primary) hypertension
CPT/HCPCS: 36415; 71045-TC; 80048-TC; 80053-TC; 80061-TC; 80076-TC; 80305; 81000-TC; 82550-TC; 82570-TC; 83735-TC; 83970; 84100-TC; 84155; 84155-TC; 84165; 84300-TC; 84443-TC; 85025-TC; 87040-TC; 87081-TC; 92521; A6253; A6403; G0378; G0480; J1630; J1650; J1953; J2060; J3475; J3490; J7030